=== PATIENT | female | born 1965 | race Two or more races ===

== ENCOUNTER 2018-02-26 16:37 | Emergency (ER) | payer SELFPAY ==
[~2018-02-26] VITALS: Ht 157.5 cm; Wt 90.4 kg
[2018-02-26 16:41] VITALS: BP 147/87
== END 2018-02-26 17:28 | disposition home or self-care (01) ==
LOC: EME 16:37
PROC: 0H9GXZZ Drainage of Left Hand Skin, External Approach (ICD-10-PCS; principal; 2018-02-26)
DX: L03.012 Cellulitis of left finger (principal); F17.200 Nicotine dependence, unspecified, uncomplicated
CPT/HCPCS: 99281; 99284; S0020

== ENCOUNTER 2018-03-12 21:46 | Emergency (ER) | payer OTHER ==
[~2018-03-12] VITALS: Ht 157.5 cm; Wt 89.4 kg
[2018-03-12 22:32] LABS: HEMATOCRIT 38.6 % (36.0-46.0); HEMOGLOBIN 13.2 G/DL (11.9-15.5); MCH 31.1 PG (29.0-34.0); MCHC 34.2 G/DL (30.0-36.0); MCV 90.8 FL (83-99); PLATELET COUNT 325 K/uL (156-360); RBC DIS.WIDTH-CV 12.8 % (11.8-14.6); RBC DIS.WIDTH-SD 42.6 % (39-53); RED BLOOD COUNT 4.25 M/uL (3.80-5.20); WHITE BLOOD COUNT 13.6 K/uL (4.1-10.2)
[2018-03-12 22:47] LABS: ALBUMIN 4.5 g/dL (3.2-4.8); CHLORIDE 106 mEq/L (99-109); POTASSIUM 3.5 mEq/L (3.7-5.4); SODIUM 140 mEq/L (136-147)
[2018-03-12 22:49] LABS: GLUCOSE 126 mg/dL (70-99); TOTAL PROTEIN 7.1 g/dL (6.4-8.3)
[2018-03-12 22:49] LABS: APPEARANCE CLEAR ((CLEAR)); BILIRUBIN NEGATIVE; BLOOD NEGATIVE; COLOR YELLOW ((YELLOW)); GLUCOSE (STRIP) NEGATIVE; KETONES NEGATIVE; LEUKOCYTES NEGATIVE; NITRITE NEGATIVE; PROTEIN (STRIP) NEGATIVE; SPECIFIC GRAVITY 1.013 (1.000-1.030); UCUL ADDED? NO; UROBILINOGEN 0.2 MG/DL (0.2-1.0)
[2018-03-12 22:51] LABS: TOTAL BILIRUBIN 0.3 mg/dL (0.0-1.0)
[2018-03-12 22:53] LABS: ALKALINE PHOSPHATASE 123 IU/L (3-129); CREATININE 0.8 mg/dL (0.6-1.3); GFR ESTIMATE (CALCULATED) > 59 mL/min/
[2018-03-12 22:54] LABS: AST (GOT) 17 IU/L (2-34); UREA NITROGEN (BUN) 10 mg/dL (9-23)
[2018-03-12 22:56] LABS: ALT (GPT) 15 IU/L (3-49); LIPASE 26 U/L (1.0-51.0)
[2018-03-12 23:02] LABS: QUANTITATIVE HCG < 4.0 MIU/ML
[2018-03-13 00:01] LABS: TROP-I INTERPRETATION NEGATIVE; TROPONIN-I < 0.01 ng/mL (0.0-0.30)
[2018-03-13] MEDS ORDERED: CARAFATE1 GM PO (01:40)
[2018-03-13] MEDS ORDERED: ZOFRAN4 MG PO (01:40)
[2018-03-13] MEDS ORDERED: BENTYL20 MG PO (01:40)
[2018-03-13 01:48] VITALS: BP 128/66
== END 2018-03-13 01:49 | disposition home or self-care (01) ==
LOC: EME 21:46
DX: R10.9 Unspecified abdominal pain (principal); R20.2 Paresthesia of skin; R11.2 Nausea with vomiting, unspecified; B19.20 Unspecified viral hepatitis C without hepatic coma; I25.10 Atherosclerotic heart disease of native coronary artery without angina pectoris; F31.9 Bipolar disorder, unspecified; F17.200 Nicotine dependence, unspecified, uncomplicated; Z87.442 Personal history of urinary calculi; Z90.49 Acquired absence of other specified parts of digestive tract; Z88.7 Allergy status to serum and vaccine
CPT/HCPCS: 70450; 74176; 80053; 81003; 83690; 84484; 84702; 85027; 93005; 99281; 99284; J1885; J2405; J7030

== ENCOUNTER 2018-03-25 17:33 | Inpatient (IN) | payer OTHER ==
[~2018-03-25] VITALS: Ht 157.5 cm; Wt 98.0 kg
[~2018-03-25 17:33] MED LIST: BENTYL20 MG PO; CARAFATE1 GM PO; ZOFRAN4 MG PO
[2018-03-25 18:47] LABS: CHLORIDE 107 mEq/L (99-109); SODIUM 140 mEq/L (136-147)
[2018-03-25 18:49] LABS: GLUCOSE 123 mg/dL (70-99)
[2018-03-25 18:52] LABS: APPEARANCE SL.HAZY ((CLEAR)); BILIRUBIN NEGATIVE; BLOOD NEGATIVE; COLOR YELLOW ((YELLOW)); GLUCOSE (STRIP) NEGATIVE; KETONES NEGATIVE; LEUKOCYTES TRACE; NITRITE NEGATIVE; PROTEIN (STRIP) NEGATIVE; SPECIFIC GRAVITY 1.013 (1.000-1.030); UROBILINOGEN 0.2 MG/DL (0.2-1.0)
[2018-03-25 18:53] LABS: CREATININE 0.7 mg/dL (0.6-1.3); GFR ESTIMATE (CALCULATED) > 59 mL/min/; UREA NITROGEN (BUN) 8 mg/dL (9-23)
[2018-03-25 18:58] LABS: HEMATOCRIT 37.4 % (36.0-46.0); HEMOGLOBIN 12.6 G/DL (11.9-15.5); MCHC 33.7 G/DL (30.0-36.0); MCV 92.1 FL (83-99); RBC DIS.WIDTH-CV 12.8 % (11.8-14.6); RBC DIS.WIDTH-SD 43.3 % (39-53); RED BLOOD COUNT 4.06 M/uL (3.80-5.20); WHITE BLOOD COUNT 9.2 K/uL (4.1-10.2)
[2018-03-25 19:00] LABS: BACTERIA RARE /HPF; EPITHELIAL CELLS 3+ /HPF; MUCUS TRACE /LPF; RED BLOOD CELLS 0-5 /HPF (0-5); WHITE BLOOD CELLS 0-5 /HPF (0-5)
[2018-03-25 19:01] LABS: QUANTITATIVE HCG < 4.0 MIU/ML
[2018-03-25 19:07] LABS: AMPHETAMINE NEGATIVE (500 ng/mL); BARBITURATES NEGATIVE (200 ng/mL); BENZODIAZEPINES NEGATIVE (150 ng/mL); BUPRENORPHINE NEGATIVE (10 ng/mL); COCAINE NEGATIVE (150 ng/mL); METHADONE NEGATIVE (200 ng/mL); METHAMPHETAMINE NEGATIVE (500 ng/mL); OPIATES (MORPHINE) NEGATIVE (100 ng/mL); OXYCODONE NEGATIVE (100 ng/mL); PHENCYCLIDINE NEGATIVE (25 ng/mL); PROPOXYPHENE NEGATIVE (300 ng/mL); THC CANNABINOIDS NEGATIVE (50 ng/mL); TRICYCLIC ANTIDEPRESSANTS NEGATIVE (300 ng/mL)
[2018-03-25 20:18] LABS: HEMATOLOGY COMMENT 1 SN; PLAT.SUFFICIENCY ADEQUATE; PLATELET COUNT 232 K/uL (156-360)
[2018-03-26 14:21] VITALS: BP 109/65
[2018-03-26] MEDS ORDERED: LITHIUM CARBON600 MG PO (14:52)
[2018-03-26] MEDS ORDERED: INGREZZA80 MG PO (14:53)
[2018-03-26] MEDS ORDERED: DESYREL 150 MG150 MG PO (14:54)
[2018-03-26] MEDS ORDERED: CYMBALTA30 MG PO (14:55)
[2018-03-26] MEDS ORDERED: ATARAX,VISTARIL50 MG PO (14:56)
[2018-03-26 16:43] VITALS: BP 96/51
[2018-03-27 08:04] VITALS: BP 118/65
[2018-03-27 16:28] VITALS: BP 109/60
[2018-03-28 07:46] VITALS: BP 131/73
[2018-03-28 15:32] VITALS: BP 105/58
[2018-03-29 07:56] VITALS: BP 114/68
[2018-03-29 16:04] VITALS: BP 105/60
[2018-03-30 08:01] VITALS: BP 149/66
[2018-03-30 16:31] VITALS: BP 109/67
[2018-03-31 08:03] VITALS: BP 102/69
[2018-03-31] MEDS ORDERED: LITHIUM CARBON300 MG PO (08:40)
[2018-03-31] MEDS ORDERED: OLANZAPINE10 MG PO (08:40)
[2018-03-31] MEDS ORDERED: DESYREL 150 MG150 MG PO (08:40)
[2018-03-31] MEDS ORDERED: ROBITUSSIN NIG237 ML PO (08:40)
[2018-03-31] MEDS ORDERED: DULOXETINE HCL60 MG PO (08:40)
== END 2018-03-31 11:31 | DRG 885 ==
LOC: EME 17:33 → 1WEST 03-26 11:04 → EDOF 03-26 11:04 → 1WEST 03-26 14:22
PROVIDERS: Nurse Practitioner Family
DX: F31.30 Bipolar disorder, current episode depressed, mild or moderate severity, unspecified (principal); R45.851 Suicidal ideations; F11.10 Opioid abuse, uncomplicated; F14.10 Cocaine abuse, uncomplicated; G24.01 Drug induced subacute dyskinesia; F43.10 Post-traumatic stress disorder, unspecified; F41.9 Anxiety disorder, unspecified; F60.89 Other specific personality disorders; I25.10 Atherosclerotic heart disease of native coronary artery without angina pectoris; F17.200 Nicotine dependence, unspecified, uncomplicated
CPT/HCPCS: 71046; 80048; 80178; 81003; 84702; 85027; 90837; 97150 GO; 97165 GO; 99281; 99285; Q0177

== ENCOUNTER 2018-04-16 22:01 | Emergency (ER) | payer OTHER ==
[~2018-04-16] VITALS: Ht 157.5 cm; Wt 88.2 kg
[~2018-04-16 22:01] MED LIST changes: +ATARAX,VISTARIL50 MG PO; +CYMBALTA30 MG PO; +DESYREL 150 MG150 MG PO; +DULOXETINE HCL60 MG PO; +INGREZZA80 MG PO; +LITHIUM CARBON300 MG PO; +LITHIUM CARBON600 MG PO; +OLANZAPINE10 MG PO; +ROBITUSSIN NIG237 ML PO
[2018-04-16 22:52] LABS: HEMATOCRIT 35.8 % (36.0-46.0); HEMOGLOBIN 12.1 G/DL (11.9-15.5); MCH 30.5 PG (29.0-34.0); MCHC 33.8 G/DL (30.0-36.0); MCV 90.2 FL (83-99); RBC DIS.WIDTH-CV 12.5 % (11.8-14.6); RBC DIS.WIDTH-SD 41.5 % (39-53); RED BLOOD COUNT 3.97 M/uL (3.80-5.20); WHITE BLOOD COUNT 13.6 K/uL (4.1-10.2)
[2018-04-16 22:54] LABS: PLATELET COUNT 321 K/uL (156-360)
[2018-04-16 23:02] LABS: D-DIMER ELISA < 150.00 ng/mLDDU (<230)
[2018-04-16 23:03] LABS: ALBUMIN 4.1 g/dL (3.2-4.8); CHLORIDE 105 mEq/L (99-109); POTASSIUM 3.5 mEq/L (3.7-5.4); SODIUM 139 mEq/L (136-147)
[2018-04-16 23:06] LABS: GLUCOSE 105 mg/dL (70-99); TOTAL PROTEIN 6.5 g/dL (6.4-8.3)
[2018-04-16 23:08] LABS: TOTAL BILIRUBIN 0.4 mg/dL (0.0-1.0)
[2018-04-16 23:09] LABS: ALKALINE PHOSPHATASE 108 IU/L (3-129); CREATININE 0.8 mg/dL (0.6-1.3); GFR ESTIMATE (CALCULATED) > 59 mL/min/
[2018-04-16 23:10] LABS: UREA NITROGEN (BUN) 10 mg/dL (9-23)
[2018-04-16 23:11] LABS: AST (GOT) 14 IU/L (2-34)
[2018-04-16 23:12] LABS: ALT (GPT) 14 IU/L (3-49)
[2018-04-16 23:13] LABS: LIPASE 33 U/L (1.0-51.0)
[2018-04-16 23:13] LABS: TROP-I INTERPRETATION NEGATIVE; TROPONIN-I < 0.01 ng/mL (0.0-0.30)
[2018-04-17 01:33] LABS: TROP-I INTERPRETATION NEGATIVE; TROPONIN-I 0.02 ng/mL (0.0-0.30)
[2018-04-17 01:41] VITALS: BP 101/68
== END 2018-04-17 01:55 | disposition home or self-care (01) ==
LOC: EME 22:01
PROVIDERS: Emergency Medicine
DX: R07.9 Chest pain, unspecified (principal); R06.02 Shortness of breath; R09.81 Nasal congestion; Z90.49 Acquired absence of other specified parts of digestive tract; F17.200 Nicotine dependence, unspecified, uncomplicated
CPT/HCPCS: 71046; 80053; 83690; 84484; 85027; 85379; 93005; 99281; 99284